=== PATIENT | female | born 1945 ===

== ENCOUNTER → 2025-01-03 11:24 | Outpatient (REF) | payer MEDICARE, SELFPAY | LOC: RAD 11:24 | PROVIDERS: ATTENDING PHYSICIAN Student in an Organized Health Care Education/Training Program; FAMILY PHYSICIAN Family Medicine | DX: R19.4 Change in bowel habit (principal); K59.00 Constipation, unspecified | CPT/HCPCS: 74019 ==

== ENCOUNTER 2025-01-31 06:38 | Day surgery (SDC) | payer MEDICARE, SELFPAY ==
[2025-01-31 08:27] LABS: Glucose - Point of Care 100 mg/dl (70-99)
== END 2025-01-31 12:31 | disposition home or self-care (01) ==
LOC: GI 06:38
PROVIDERS: ATTENDING PHYSICIAN Student in an Organized Health Care Education/Training Program
DX: Z12.11 Encounter for screening for malignant neoplasm of colon (principal); Z80.0 Family history of malignant neoplasm of digestive organs; Z86.0100 Personal history of colon polyps, unspecified; K64.0 First degree hemorrhoids; K64.4 Residual hemorrhoidal skin tags; R13.14 Dysphagia, pharyngoesophageal phase; R12 Heartburn; K31.89 Other diseases of stomach and duodenum; K22.89 Other specified disease of esophagus; D12.5 Benign neoplasm of sigmoid colon; D12.4 Benign neoplasm of descending colon; D12.3 Benign neoplasm of transverse colon; K62.1 Rectal polyp
CPT/HCPCS: 45385; 45380; 43239; 88305; 82962; 88342